=== PATIENT | male | born 1935 | race Asian ===

== ENCOUNTER → 2019-06-06 | Outpatient (CLI) | payer MEDICARE, OTHER ==
[~2019-06-06] MED LIST: ASPI-891 PO; CALC-491 PO; DILT30TA3 PO; HYDR25TA PO; LOSA25TA41 PO; METO50TA18 PO; TAMS0.4C32 PO; TOLT4CAP33 PO
== END | disposition home or self-care (01) ==
LOC: RADPV 10:19
PROVIDERS: ATTEND Internal Medicine Nephrology
DX: N26.1 Atrophy of kidney (terminal) (principal); N18.3 Chronic kidney disease, stage 3 (moderate)
CPT/HCPCS: 76770